=== PATIENT | male | born 1950 | race Caucasian/White ===

== ENCOUNTER 2017-08-15 16:00 | Emergency (ER) | payer MEDICARE, BC ==
[~2017-08-15] VITALS: Ht 188 cm; Wt 90.4 kg
[2017-08-15] MEDS ORDERED: SODIUM CHLORIDE FLUSH 10ML SYR IVF ONE (17:00)
[2017-08-15] MEDS ORDERED: DIPHENHYDRAMINE 50 MG/ML, 1ML IVPush ONE (17:00)
[2017-08-15] MEDS ORDERED: SODIUM CHLORIDE 0.9% 1,000ML IVBOLUS ONE (17:00)
[2017-08-15] MEDS ORDERED: PROCHLORPERAZINE 5 MG/ML, 2ML IVPush ONE (17:00)
[2017-08-15] MEDS ORDERED: KETOROLAC 30 MG/1 ML IVPush ONE (17:00)
[2017-08-15] MEDS ORDERED: KETOROLAC 30 MG/1 ML ONE (17:04)
[2017-08-15] MEDS ORDERED: PROCHLORPERAZINE 5 MG/ML, 2ML ONE (17:04)
[2017-08-15] MEDS ORDERED: DIPHENHYDRAMINE 50 MG/ML, 1ML ONE (17:04)
[2017-08-15 19:28] VITALS: BP 121/78
== END 2017-08-15 19:32 | disposition home or self-care (01) ==
LOC: ED 19:09
DX: G43.909 Migraine, unspecified, not intractable, without status migrainosus (principal); R11.0 Nausea
CPT/HCPCS: 96361; 96374; 96375; 99284; J0780; J1200; J1885; J7030